=== PATIENT | female | born 1980 | race Caucasian/White ===

== ENCOUNTER → 2018-03-13 | Outpatient (CLI) | payer MEDICAID | LOC: COL.RAD 09:55 | DX: K21.9 Gastro-esophageal reflux disease without esophagitis (principal) ==

== ENCOUNTER 2018-04-05 09:24 | Inpatient (IN) | payer MEDICAID ==
[2018-04-05] VITALS (426 sets, daily range): BP systolic 115–124; BP diastolic 69–87; PULSE 84–88; TEMP 98.5–98.7; O2SAT 94–100
[~2018-04-05] VITALS: Ht 170.2 cm; Wt 100.7 kg
[2018-04-05] MEDS ORDERED: WELLBUTRIN XL150 MG PO (10:03)
[2018-04-05] MEDS ORDERED: CELEXA40 MG PO (10:04)
[2018-04-05] MEDS ORDERED: MOBIC15 MG PO (10:04)
[2018-04-05] MEDS ORDERED: XANAX .25M0.25 MG/TA PO (10:05)
[2018-04-05] MEDS ORDERED: PROTONIX 40MG T40 MG PO (10:06)
[2018-04-05] MEDS ORDERED: LIORESAL 1010 MG/TAB PO (10:06)
[2018-04-05] MEDS ORDERED: DESOGEN PO (10:07)
[2018-04-05 10:46] LABS: BASO # 0.1 (0.0-0.2); BASO % 0.7 % (0.0-2.0); EOS # 0.1 (0.0-0.7); EOS % 1.3 % (0-4.0); GRAN # 6.2 (1.4-6.5); GRAN % 72.7 % (42.2-75.2); HEMATOCRIT 38.4 % (37.0-47.0); HEMOGLOBIN 13.2 g/dl (12.5-16.0); LYMPH # 1.5 (1.2-3.4); LYMPH % 17.4 % (20.0-51.0); MEAN CELL VOLUME 87 fl (80.0-100.0); MEAN CORPUSCULAR HEMOGLOBIN 30 pg (27.0-31.0); MEAN CORPUSCULAR HGB CONC 34 g/dl (33.0-37.0); MEAN PLATELET VOLUME 10.1 fl (7.4-10.4); MONO # 0.6 (0.1-0.6); MONO % 7.4 % (1.7-9.3); PLATELET COUNT 315 K/mm3 (130-400); RED BLOOD COUNT 4.42 M/mm3 (4.10-5.30); REDCELL DISTRIBUTION WIDTH-CV 11.4 % (11.5-14.5)
[2018-04-05 10:58] LABS: COLLECTION METHOD CLEAN CATCH
[2018-04-05 11:02] LABS: ALANINE AMINOTRANSFERASE 16 U/L (9-52); ALBUMIN 3.6 gm/dL (3.5-5.0); ALKALINE PHOSPHATASE 119 U/L (50-136); ANION GAP 9 mmol/L (7-16); AST,SGOT 18 U/L (15-37); BILIRUBIN,TOTAL 0.2 mg/dL (0.0-1.0); BLOOD UREA NITROGEN 8 mg/dL (7-17); CARBON DIOXIDE 22 mmol/L (22-30); CHLORIDE 105 mmol/L (98-107); CREATINE KINASE 29 U/L (30-135); CREATININE, serum 0.73 mg/dL (0.52-1.25); GLUCOSE 98 mg/dL (74-106); MAGNESIUM 1.9 mg/dL (1.6-2.3); PHOSPHOROUS 3.6 mg/dL (2.5-4.5); POTASSIUM 3.8 mmol/L (3.4-5.0); SODIUM 137 mmol/L (137-145); TOTAL PROTEIN 7.1 gm/dL (6.4-8.2)
[2018-04-05 11:03] LABS: MUCOUS Present /lpf; PH 6 (5-8); SQUAMOUS EPITHELIAL 0-2 /hpf; URINE APPEARANCE Clear; URINE BACTERIA None Seen /hpf; URINE BILIRUBIN Negative (NEGATIVE); URINE BLOOD Negative (NEGATIVE); URINE COLOR Yellow; URINE GLUCOSE Negative (NEGATIVE); URINE KETONE Negative (NEGATIVE); URINE LEUKOCYTE ESTERASE Negative (NEGATIVE); URINE NITRATE Negative (NEGATIVE); URINE PROTEIN(semi-quant) Negative (NEGATIVE); URINE RBC 0-2 /hpf; URINE UROBILINOGEN Negative (NEGATIVE)
[2018-04-05 11:16] LABS: TROPONIN-I < 0.012 ng/mL (0.000-0.034)
[2018-04-05 11:19] LABS: THYROXINE (T4)-TOTAL 7.2 ug/dL (5.5-11.0)
[2018-04-05 11:32] LABS: THYROID STIMULATING HORMONE 0.465 uIU/mL (0.465-4.680)
[2018-04-05 12:51] LABS: INR 1.1 (0.8-3.0); PROTHROMBIN TIME 12.1 SECONDS (9.7-12.8)
[2018-04-05 12:54] LABS: PARTIAL THROMBOPLASTIN TIME 32.4 SECONDS (26.0-37.0)
[2018-04-06] VITALS (175 sets, daily range): BP systolic 104–123; BP diastolic 60–82; PULSE 76–85; TEMP 97.9–98.5; O2SAT 94–100
[2018-04-06 05:32] LABS: BASO % 0.6 % (0.0-2.0); EOS # 0.1 (0.0-0.7); EOS % 1.5 % (0-4.0); GRAN # 3.7 (1.4-6.5); GRAN % 56.3 % (42.2-75.2); HEMOGLOBIN 11.9 g/dl (12.5-16.0); LYMPH # 2.3 (1.2-3.4); LYMPH % 34.9 % (20.0-51.0); MEAN CELL VOLUME 87 fl (80.0-100.0); MEAN CORPUSCULAR HEMOGLOBIN 30 pg (27.0-31.0); MEAN CORPUSCULAR HGB CONC 34 g/dl (33.0-37.0); MEAN PLATELET VOLUME 9.7 fl (7.4-10.4); MONO # 0.4 (0.1-0.6); MONO % 6.4 % (1.7-9.3); PLATELET COUNT 228 K/mm3 (130-400); RED BLOOD COUNT 4.02 M/mm3 (4.10-5.30); REDCELL DISTRIBUTION WIDTH-CV 11.4 % (11.5-14.5)
[2018-04-06 05:33] LABS: HEMATOCRIT 34.8 % (37.0-47.0)
[2018-04-06 05:41] LABS: CALCIUM 8.2 mg/dL (8.4-10.2); CREATININE, serum 0.62 mg/dL (0.52-1.25); POTASSIUM 3.6 mmol/L (3.4-5.0)
[2018-04-07 05:36] VITALS: BP 106/62; PULSE 78; TEMP 98.3
[2018-04-07 06:43] LABS: BASO # 0.1 (0.0-0.2); BASO % 0.8 % (0.0-2.0); EOS # 0.1 (0.0-0.7); EOS % 1.7 % (0-4.0); GRAN # 3.7 (1.4-6.5); GRAN % 58.4 % (42.2-75.2); HEMOGLOBIN 12.6 g/dl (12.5-16.0); LYMPH % 31.2 % (20.0-51.0); MEAN CELL VOLUME 88 fl (80.0-100.0); MEAN CORPUSCULAR HEMOGLOBIN 29 pg (27.0-31.0); MEAN CORPUSCULAR HGB CONC 33 g/dl (33.0-37.0); MEAN PLATELET VOLUME 9.8 fl (7.4-10.4); MONO # 0.5 (0.1-0.6); MONO % 7.6 % (1.7-9.3); PLATELET COUNT 271 K/mm3 (130-400); RED BLOOD COUNT 4.31 M/mm3 (4.10-5.30); REDCELL DISTRIBUTION WIDTH-CV 11.6 % (11.5-14.5)
[2018-04-07 06:57] VITALS: BP 116/71; PULSE 71; TEMP 97.4
[2018-04-07] MEDS ORDERED: ELIQUIS 5MG PO (10:46)
== END 2018-04-07 14:01 | disposition home or self-care (01) | DRG 176 ==
LOC: COL.ER 09:24 → ICU 13:17 → MEDICAL 04-06 13:42
PROVIDERS: Emergency Medicine; Hospitalist
DX: I26.99 Other pulmonary embolism without acute cor pulmonale (principal); Z87.891 Personal history of nicotine dependence; F41.8 Other specified anxiety disorders
CPT/HCPCS: 99223-AI; 99233-AI; 99239; J1650; J1940; J2060; J2405; J7030; Q9967

== ENCOUNTER 2018-04-12 16:45 | Emergency (ER) | payer MEDICAID ==
[~2018-04-12] VITALS: Ht 167.6 cm; Wt 100.0 kg
[~2018-04-12 16:45] MED LIST: CELEXA40 MG PO; DESOGEN PO; ELIQUIS 5MG PO; LIORESAL 1010 MG/TAB PO; MOBIC15 MG PO; PROTONIX 40MG T40 MG PO; WELLBUTRIN XL150 MG PO; XANAX .25M0.25 MG/TA PO
[2018-04-12 16:50] VITALS: TEMP 98.1
[2018-04-12] MEDS ORDERED: FLEXERIL 1010 MG/TAB PO (18:18)
[2018-04-12] MEDS ORDERED: XANAX 0.5MG0.5 MG PO (18:19)
[2018-04-12] MEDS ORDERED: NORCO 325 MG-51 TAB PO (18:38)
[2018-04-12 19:04] VITALS: BP 121/78; PULSE 71
== END 2018-04-12 19:04 | disposition home or self-care (01) ==
LOC: COL.ER 16:45
DX: M94.0 Chondrocostal junction syndrome [Tietze] (principal)

== ENCOUNTER 2018-05-02 17:21 | Emergency (ER) | payer MEDICAID ==
[~2018-05-02] VITALS: Ht 167.6 cm; Wt 100.9 kg
[~2018-05-02 17:21] MED LIST changes: +FLEXERIL 1010 MG/TAB PO; +NORCO 325 MG-51 TAB PO; +XANAX 0.5MG0.5 MG PO
[2018-05-02 17:30] VITALS: TEMP 98
[2018-05-02 18:08] LABS: BASO # 0.1 (0.0-0.2); BASO % 0.6 % (0.0-2.0); EOS # 0.1 (0.0-0.7); EOS % 0.6 % (0-4.0); HEMATOCRIT 38.7 % (37.0-47.0); LYMPH # 2.5 (1.2-3.4); LYMPH % 26.8 % (20.0-51.0); MEAN CELL VOLUME 86 fl (80.0-100.0); MEAN CORPUSCULAR HEMOGLOBIN 29 pg (27.0-31.0); MEAN CORPUSCULAR HGB CONC 34 g/dl (33.0-37.0); MEAN PLATELET VOLUME 9.8 fl (7.4-10.4); MONO # 0.7 (0.1-0.6); MONO % 7.7 % (1.7-9.3); PLATELET COUNT 318 K/mm3 (130-400); RED BLOOD COUNT 4.48 M/mm3 (4.10-5.30); REDCELL DISTRIBUTION WIDTH-CV 12.1 % (11.5-14.5)
[2018-05-02] MEDS ORDERED: PRILOSEC 20MG20 MG PO (18:13)
[2018-05-02 18:22] LABS: ALBUMIN 3.8 gm/dL (3.5-5.0); BILIRUBIN,TOTAL 0.4 mg/dL (0.0-1.0); CALCIUM 9.1 mg/dL (8.4-10.2); CREATININE, serum 0.7 mg/dL (0.52-1.25); POTASSIUM 4.1 mmol/L (3.4-5.0); TOTAL PROTEIN 7.5 gm/dL (6.4-8.2)
[2018-05-02] MEDS ORDERED: NORCO 325 MG-51 TAB PO (19:30)
[2018-05-02 19:50] VITALS: BP 119/72; PULSE 93
== END 2018-05-02 19:45 | disposition home or self-care (01) ==
LOC: COL.ER 17:21
PROVIDERS: Emergency Medicine
DX: R07.89 Other chest pain (principal); Z86.711 Personal history of pulmonary embolism; Z79.01 Long term (current) use of anticoagulants; Z90.89 Acquired absence of other organs; Z87.891 Personal history of nicotine dependence
CPT/HCPCS: J1885; J7030

== ENCOUNTER 2018-05-14 09:26 | Emergency (ER) | payer MEDICAID ==
[~2018-05-14] VITALS: Ht 165.1 cm; Wt 104.5 kg
[~2018-05-14 09:26] MED LIST changes: +PRILOSEC 20MG20 MG PO
[2018-05-14 09:34] VITALS: TEMP 97
[2018-05-14 10:30] LABS: BASO # 0.1 (0.0-0.2); EOS # 0.1 (0.0-0.7); GRAN # 3.6 (1.4-6.5); GRAN % 62.2 % (42.2-75.2); HEMATOCRIT 39.2 % (37.0-47.0); HEMOGLOBIN 13.1 g/dl (12.5-16.0); LYMPH # 1.6 (1.2-3.4); LYMPH % 27.2 % (20.0-51.0); MEAN CELL VOLUME 87 fl (80.0-100.0); MEAN CORPUSCULAR HEMOGLOBIN 29 pg (27.0-31.0); MEAN CORPUSCULAR HGB CONC 33 g/dl (33.0-37.0); MEAN PLATELET VOLUME 9.9 fl (7.4-10.4); MONO # 0.5 (0.1-0.6); MONO % 8.4 % (1.7-9.3); PLATELET COUNT 275 K/mm3 (130-400); RED BLOOD COUNT 4.53 M/mm3 (4.10-5.30); REDCELL DISTRIBUTION WIDTH-CV 12.8 % (11.5-14.5)
[2018-05-14 10:48] LABS: ALANINE AMINOTRANSFERASE 20 U/L (9-52); ALBUMIN 3.8 gm/dL (3.5-5.0); ALKALINE PHOSPHATASE 94 U/L (50-136); ANION GAP 11 mmol/L (7-16); AST,SGOT 23 U/L (15-37); BILIRUBIN,TOTAL 0.3 mg/dL (0.0-1.0); BLOOD UREA NITROGEN 11 mg/dL (7-17); CALCIUM 8.8 mg/dL (8.4-10.2); CARBON DIOXIDE 24 mmol/L (22-30); CHLORIDE 101 mmol/L (98-107); CREATININE, serum 0.79 mg/dL (0.52-1.25); GLUCOSE 91 mg/dL (74-106); POTASSIUM 4.1 mmol/L (3.4-5.0); SODIUM 136 mmol/L (137-145); TOTAL PROTEIN 7.5 gm/dL (6.4-8.2)
[2018-05-14 10:57] LABS: TROPONIN-I < 0.012 ng/mL (0.000-0.034)
[2018-05-14] MEDS ORDERED: NORCO 325 MG-51 TAB PO (12:06)
[2018-05-14] MEDS ORDERED: ELIQUIS 5MG PO (12:06)
[2018-05-14] MEDS ORDERED: FLEXERIL 1010 MG/TAB PO (12:06)
[2018-05-14 12:16] VITALS: BP 114/79; PULSE 93
== END 2018-05-14 12:17 | disposition home or self-care (01) ==
LOC: COL.ER 09:26
PROVIDERS: Emergency Medicine
DX: R07.81 Pleurodynia (principal); F41.9 Anxiety disorder, unspecified; Z86.711 Personal history of pulmonary embolism; Z98.890 Other specified postprocedural states; Z90.89 Acquired absence of other organs; Z87.891 Personal history of nicotine dependence; Z79.01 Long term (current) use of anticoagulants
CPT/HCPCS: Q9967

== ENCOUNTER 2018-07-14 17:24 | Emergency (ER) | payer MEDICAID ==
[~2018-07-14] VITALS: Ht 167.6 cm; Wt 104.5 kg
[2018-07-14 18:09] LABS: BASO # 0.1 (0.0-0.2); BASO % 1.2 % (0.0-2.0); EOS # 0.1 (0.0-0.7); EOS % 1.1 % (0-4.0); GRAN # 2.8 (1.4-6.5); GRAN % 48.4 % (42.2-75.2); HEMATOCRIT 39.3 % (37.0-47.0); HEMOGLOBIN 13.6 g/dl (12.5-16.0); LYMPH # 2.4 (1.2-3.4); LYMPH % 41.2 % (20.0-51.0); MEAN CELL VOLUME 85 fl (80.0-100.0); MEAN CORPUSCULAR HEMOGLOBIN 29 pg (27.0-31.0); MEAN CORPUSCULAR HGB CONC 35 g/dl (33.0-37.0); MEAN PLATELET VOLUME 9.5 fl (7.4-10.4); MONO # 0.4 (0.1-0.6); MONO % 7.7 % (1.7-9.3); PLATELET COUNT 301 K/mm3 (130-400); RED BLOOD COUNT 4.63 M/mm3 (4.10-5.30); REDCELL DISTRIBUTION WIDTH-CV 12.8 % (11.5-14.5)
[2018-07-14 18:18] LABS: ALANINE AMINOTRANSFERASE 103 U/L (9-52); ALBUMIN 3.9 gm/dL (3.5-5.0); ALKALINE PHOSPHATASE 97 U/L (50-136); ANION GAP 7 mmol/L (7-16); AST,SGOT 158 U/L (15-37); BILIRUBIN,TOTAL 0.3 mg/dL (0.0-1.0); BLOOD UREA NITROGEN 8 mg/dL (7-17); CALCIUM 8.7 mg/dL (8.4-10.2); CARBON DIOXIDE 23 mmol/L (22-30); CHLORIDE 108 mmol/L (98-107); CREATININE, serum 0.66 mg/dL (0.52-1.25); GLUCOSE 92 mg/dL (74-106); POTASSIUM 3.9 mmol/L (3.4-5.0); SODIUM 137 mmol/L (137-145); TOTAL PROTEIN 7.4 gm/dL (6.4-8.2)
[2018-07-14 18:33] LABS: TROPONIN-I < 0.012 ng/mL (0.000-0.034)
[2018-07-14] MEDS ORDERED: PROAIR HFA0.09 MG/AC IH ×3 (20:59→21:17)
[2018-07-14 21:14] VITALS: BP 121/74; PULSE 70
== END 2018-07-14 21:14 | disposition home or self-care (01) ==
LOC: COL.ER 17:24
PROVIDERS: Emergency Medicine
DX: R09.1 Pleurisy (principal); Z86.711 Personal history of pulmonary embolism
CPT/HCPCS: J1170; J1885; J2405; J7030; Q9967

== ENCOUNTER 2018-09-13 16:49 | Emergency (ER) | payer MEDICAID ==
[~2018-09-13] VITALS: Ht 167.6 cm; Wt 104.5 kg
[~2018-09-13 16:49] MED LIST changes: +PROAIR HFA0.09 MG/AC IH
[2018-09-13 16:56] VITALS: TEMP 98.2
[2018-09-13] MEDS ORDERED: BUSPAR10 MG PO (17:12)
[2018-09-13] MEDS ORDERED: SENOKOT8.6 MG PO (17:13)
[2018-09-13] MEDS ORDERED: NEURONTIN300 MG/CAP PO (17:13)
[2018-09-13] MEDS ORDERED: XANAX 0.5MG0.5 MG PO (17:13)
[2018-09-13] MEDS ORDERED: NORFLEX 10100 MG/TAB PO (17:14)
[2018-09-13] MEDS ORDERED: DESYREL DIVIDO150 M1 PO (17:14)
[2018-09-13 17:24] LABS: BASO # 0.1 (0.0-0.2); BASO % 1.1 % (0.0-2.0); EOS # 0.1 (0.0-0.7); EOS % 0.9 % (0-4.0); GRAN # 3.6 (1.4-6.5); GRAN % 54.4 % (42.2-75.2); HEMATOCRIT 40.8 % (37.0-47.0); HEMOGLOBIN 13.8 g/dl (12.5-16.0); LYMPH # 2.3 (1.2-3.4); LYMPH % 34.7 % (20.0-51.0); MEAN CELL VOLUME 88 fl (80.0-100.0); MEAN CORPUSCULAR HEMOGLOBIN 30 pg (27.0-31.0); MEAN CORPUSCULAR HGB CONC 34 g/dl (33.0-37.0); MEAN PLATELET VOLUME 9.7 fl (7.4-10.4); MONO # 0.6 (0.1-0.6); MONO % 8.7 % (1.7-9.3); PLATELET COUNT 291 K/mm3 (130-400); RED BLOOD COUNT 4.66 M/mm3 (4.10-5.30); REDCELL DISTRIBUTION WIDTH-CV 12.6 % (11.5-14.5)
[2018-09-13 17:30] LABS: ALANINE AMINOTRANSFERASE 14 U/L (9-52); ALKALINE PHOSPHATASE 82 U/L (50-136); ANION GAP 7 mmol/L (7-16); AST,SGOT 21 U/L (15-37); BILIRUBIN,TOTAL 0.2 mg/dL (0.0-1.0); BLOOD UREA NITROGEN 5 mg/dL (7-17); C-REACTIVE PROTEIN < 0.5 mg/dL (0.0-0.9); CARBON DIOXIDE 25 mmol/L (22-30); CHLORIDE 106 mmol/L (98-107); CREATINE KINASE 50 U/L (30-135); CREATININE, serum 0.72 mg/dL (0.52-1.25); GLUCOSE 91 mg/dL (74-106); POTASSIUM 3.9 mmol/L (3.4-5.0); SODIUM 138 mmol/L (137-145); TOTAL PROTEIN 7.5 gm/dL (6.4-8.2)
[2018-09-13 17:40] LABS: INR 1.1 (0.8-3.0); PROTHROMBIN TIME 12.2 SECONDS (9.7-12.8)
[2018-09-13 17:43] LABS: PARTIAL THROMBOPLASTIN TIME 31.7 SECONDS (26.0-37.0)
[2018-09-13 18:14] LABS: TROPONIN-I < 0.012 ng/mL (0.000-0.034)
[2018-09-13] MEDS ORDERED: NORCO 325 MG-51 TAB PO (18:24)
[2018-09-13] MEDS ORDERED: PREDNISONE20 MG PO (18:24)
[2018-09-13 18:54] VITALS: BP 125/83; PULSE 100
== END 2018-09-13 18:55 | disposition home or self-care (01) ==
LOC: COL.ER 16:49
PROVIDERS: Emergency Medicine
DX: R09.1 Pleurisy (principal); R07.89 Other chest pain; Z90.89 Acquired absence of other organs; Z98.890 Other specified postprocedural states; Z86.711 Personal history of pulmonary embolism; Z86.718 Personal history of other venous thrombosis and embolism
CPT/HCPCS: J2405; J7030; J7512

== ENCOUNTER 2018-10-04 18:18 | Emergency (ER) | payer MEDICAID ==
[~2018-10-04] VITALS: Ht 167.6 cm; Wt 118.2 kg
[~2018-10-04 18:18] MED LIST changes: +BUSPAR10 MG PO; +DESYREL DIVIDO150 M1 PO; +NEURONTIN300 MG/CAP PO; +NORFLEX 10100 MG/TAB PO; +PREDNISONE20 MG PO; +SENOKOT8.6 MG PO
[2018-10-04] MEDS ORDERED: NORFLEX 10100 MG/TAB PO (18:35)
[2018-10-04] MEDS ORDERED: EFFEXOR100 MG PO (18:37)
[2018-10-04] MEDS ORDERED: PROMETHAZINE12.5 M5 PO (18:38)
[2018-10-04 19:06] LABS: BASO # 0.1 (0.0-0.2); BASO % 0.6 % (0.0-2.0); EOS # 0.1 (0.0-0.7); EOS % 0.8 % (0-4.0); GRAN % 61.9 % (42.2-75.2); HEMATOCRIT 39.3 % (37.0-47.0); HEMOGLOBIN 13.1 g/dl (12.5-16.0); LYMPH # 2.8 (1.2-3.4); LYMPH % 29.2 % (20.0-51.0); MEAN CELL VOLUME 88 fl (80.0-100.0); MEAN CORPUSCULAR HEMOGLOBIN 29 pg (27.0-31.0); MEAN CORPUSCULAR HGB CONC 33 g/dl (33.0-37.0); MEAN PLATELET VOLUME 9.7 fl (7.4-10.4); MONO # 0.7 (0.1-0.6); MONO % 7.2 % (1.7-9.3); PLATELET COUNT 224 K/mm3 (130-400); RED BLOOD COUNT 4.46 M/mm3 (4.10-5.30); REDCELL DISTRIBUTION WIDTH-CV 12.5 % (11.5-14.5)
[2018-10-04 19:36] LABS: ALANINE AMINOTRANSFERASE 22 U/L (9-52); ALBUMIN 3.6 gm/dL (3.5-5.0); ALKALINE PHOSPHATASE 90 U/L (50-136); ANION GAP 6 mmol/L (7-16); AST,SGOT 40 U/L (15-37); BILIRUBIN,TOTAL 0.3 mg/dL (0.0-1.0); BLOOD UREA NITROGEN 7 mg/dL (7-17); CALCIUM 8.9 mg/dL (8.4-10.2); CARBON DIOXIDE 24 mmol/L (22-30); CHLORIDE 103 mmol/L (98-107); CREATININE, serum 0.72 mg/dL (0.52-1.25); GLUCOSE 88 mg/dL (74-106); LIPASE 53 U/L (23-300); POTASSIUM 4.1 mmol/L (3.4-5.0); SODIUM 133 mmol/L (137-145)
[2018-10-04 19:42] LABS: TROPONIN-I < 0.012 ng/mL (0.000-0.034)
[2018-10-04] MEDS ORDERED: ZITHROMAX 250M250 MG PO ×2 (19:53→19:58)
[2018-10-04 19:54] VITALS: BP 108/72; PULSE 65; TEMP 98.2
[2018-10-04 20:31] LABS: C-REACTIVE PROTEIN 0.6 mg/dL (0.0-0.9)
== END 2018-10-04 20:34 | disposition home or self-care (01) ==
LOC: COL.ER 18:18
PROVIDERS: Emergency Medicine
DX: J20.9 Acute bronchitis, unspecified (principal); Z87.891 Personal history of nicotine dependence; Z86.711 Personal history of pulmonary embolism; Z86.718 Personal history of other venous thrombosis and embolism

== ENCOUNTER → 2018-10-17 | Outpatient (CLI) | payer MEDICAID ==
[~2018-10-17] MED LIST changes: +EFFEXOR100 MG PO; +PROMETHAZINE12.5 M5 PO; +ZITHROMAX 250M250 MG PO
== END ==
LOC: COL.VAS 09:45 → COL.RAD 11:22
DX: I26.99 Other pulmonary embolism without acute cor pulmonale (principal)
CPT/HCPCS: Q9967

== ENCOUNTER 2018-11-02 13:49 | Emergency (ER) | payer MEDICAID ==
[~2018-11-02] VITALS: Ht 165.1 cm; Wt 109.1 kg
[2018-11-02] MEDS ORDERED: INDERAL40 MG PO (14:25)
[2018-11-02] MEDS ORDERED: EFFEXOR-XR150 MG PO (14:29)
[2018-11-02 15:20] LABS: BASO # 0.1 (0.0-0.2); BASO % 0.8 % (0.0-2.0); EOS # 0.1 (0.0-0.7); EOS % 1.1 % (0-4.0); GRAN # 4.1 (1.4-6.5); GRAN % 53.5 % (42.2-75.2); HEMATOCRIT 38.4 % (37.0-47.0); HEMOGLOBIN 12.9 g/dl (12.5-16.0); LYMPH # 2.7 (1.2-3.4); LYMPH % 35.1 % (20.0-51.0); MEAN CELL VOLUME 88 fl (80.0-100.0); MEAN CORPUSCULAR HEMOGLOBIN 29 pg (27.0-31.0); MEAN CORPUSCULAR HGB CONC 34 g/dl (33.0-37.0); MEAN PLATELET VOLUME 9.7 fl (7.4-10.4); MONO # 0.7 (0.1-0.6); PLATELET COUNT 236 K/mm3 (130-400); RED BLOOD COUNT 4.39 M/mm3 (4.10-5.30); REDCELL DISTRIBUTION WIDTH-CV 12.7 % (11.5-14.5)
[2018-11-02 15:30] LABS: ALANINE AMINOTRANSFERASE 19 U/L (9-52); ALBUMIN 3.7 gm/dL (3.5-5.0); ALKALINE PHOSPHATASE 88 U/L (50-136); ANION GAP 6 mmol/L (7-16); AST,SGOT 22 U/L (15-37); BILIRUBIN,TOTAL 0.3 mg/dL (0.0-1.0); BLOOD UREA NITROGEN 11 mg/dL (7-17); CALCIUM 8.8 mg/dL (8.4-10.2); CARBON DIOXIDE 23 mmol/L (22-30); CHLORIDE 105 mmol/L (98-107); CREATININE, serum 0.85 mg/dL (0.52-1.25); GLUCOSE 88 mg/dL (74-106); POTASSIUM 4.2 mmol/L (3.4-5.0); SODIUM 135 mmol/L (137-145); TOTAL PROTEIN 7.1 gm/dL (6.4-8.2)
[2018-11-02 15:45] LABS: TROPONIN-I < 0.012 ng/mL (0.000-0.035)
[2018-11-02] MEDS ORDERED: NORCO 325 MG-51 TAB PO (16:00)
[2018-11-02] MEDS ORDERED: CARAFATE 1GM1 G PO (16:00)
[2018-11-02 16:20] VITALS: BP 115/74; PULSE 68
== END 2018-11-02 16:20 | disposition home or self-care (01) ==
LOC: COL.ER 13:49
PROVIDERS: Emergency Medicine
DX: R07.89 Other chest pain (principal); K21.9 Gastro-esophageal reflux disease without esophagitis; G43.909 Migraine, unspecified, not intractable, without status migrainosus; Z86.718 Personal history of other venous thrombosis and embolism

== ENCOUNTER 2018-12-11 17:52 | Emergency (ER) | payer MEDICAID ==
[~2018-12-11] VITALS: Ht 167.6 cm; Wt 107.7 kg
[~2018-12-11 17:52] MED LIST changes: +CARAFATE 1GM1 G PO; +EFFEXOR-XR150 MG PO; +INDERAL40 MG PO
[2018-12-11 18:01] VITALS: TEMP 98
[2018-12-11 18:32] LABS: BASO # 0.1 (0.0-0.2); BASO % 1.1 % (0.0-2.0); EOS # 0.1 (0.0-0.7); EOS % 1.4 % (0-4.0); GRAN # 4.8 (1.4-6.5); GRAN % 56.4 % (42.2-75.2); HEMATOCRIT 41.7 % (37.0-47.0); HEMOGLOBIN 14.2 g/dl (12.5-16.0); LYMPH # 2.8 (1.2-3.4); MEAN CELL VOLUME 88 fl (80.0-100.0); MEAN CORPUSCULAR HEMOGLOBIN 30 pg (27.0-31.0); MEAN CORPUSCULAR HGB CONC 34 g/dl (33.0-37.0); MEAN PLATELET VOLUME 10.1 fl (7.4-10.4); MONO # 0.7 (0.1-0.6); MONO % 7.9 % (1.7-9.3); PLATELET COUNT 367 K/mm3 (130-400); RED BLOOD COUNT 4.73 M/mm3 (4.10-5.30); REDCELL DISTRIBUTION WIDTH-CV 12.9 % (11.5-14.5)
[2018-12-11 18:54] LABS: COLLECTION METHOD CLEAN CATCH
[2018-12-11 19:20] LABS: PH 5 (5-8); SQUAMOUS EPITHELIAL 0-2 /hpf; URINE APPEARANCE Clear; URINE BACTERIA Rare /hpf; URINE BILIRUBIN Negative (NEGATIVE); URINE BLOOD Negative (NEGATIVE); URINE COLOR Yellow; URINE GLUCOSE Negative (NEGATIVE); URINE KETONE Negative (NEGATIVE); URINE LEUKOCYTE ESTERASE Negative (NEGATIVE); URINE NITRATE Negative (NEGATIVE); URINE PROTEIN(semi-quant) Negative (NEGATIVE); URINE RBC 0-2 /hpf; URINE UROBILINOGEN Negative (NEGATIVE)
[2018-12-11 19:22] LABS: ALBUMIN 4.1 gm/dL (3.5-5.0); BILIRUBIN,TOTAL 0.3 mg/dL (0.0-1.0); CREATININE, serum 0.78 mg/dL (0.52-1.25); POTASSIUM 4.1 mmol/L (3.4-5.0); TOTAL PROTEIN 7.9 gm/dL (6.4-8.2)
[2018-12-11 20:59] VITALS: BP 112/75; PULSE 69
== END 2018-12-11 21:10 | disposition home or self-care (01) ==
LOC: COL.ER 17:52
PROVIDERS: Emergency Medicine; Physician Assistant
DX: R07.89 Other chest pain (principal); R79.1 Abnormal coagulation profile; M79.604 Pain in right leg; Z87.891 Personal history of nicotine dependence; Z90.89 Acquired absence of other organs; Z86.711 Personal history of pulmonary embolism
CPT/HCPCS: Q9967

== ENCOUNTER → 2018-12-15 | Outpatient (CLI) | payer MEDICAID | LOC: COL.VAS 10:54 | DX: M79.604 Pain in right leg (principal); R79.1 Abnormal coagulation profile ==

== ENCOUNTER 2018-12-24 11:48 | Emergency (ER) | payer MEDICAID ==
[~2018-12-24] VITALS: Ht 167.6 cm; Wt 112.3 kg
[2018-12-24 11:55] VITALS: TEMP 97.9
[2018-12-24 13:20] LABS: BASO # 0.1 (0.0-0.2); BASO % 0.8 % (0.0-2.0); EOS # 0.1 (0.0-0.7); EOS % 1.4 % (0-4.0); GRAN # 4.5 (1.4-6.5); GRAN % 60.5 % (42.2-75.2); HEMATOCRIT 40.5 % (37.0-47.0); HEMOGLOBIN 13.4 g/dl (12.5-16.0); LYMPH # 2.2 (1.2-3.4); MEAN CELL VOLUME 91 fl (80.0-100.0); MEAN CORPUSCULAR HEMOGLOBIN 30 pg (27.0-31.0); MEAN CORPUSCULAR HGB CONC 33 g/dl (33.0-37.0); MONO # 0.5 (0.1-0.6); MONO % 6.9 % (1.7-9.3); PLATELET COUNT 239 K/mm3 (130-400); RED BLOOD COUNT 4.47 M/mm3 (4.10-5.30)
[2018-12-24 13:26] LABS: BILIRUBIN,TOTAL 0.4 mg/dL (0.0-1.0); CALCIUM 9.1 mg/dL (8.4-10.2); CREATININE, serum 0.94 (0.52-1.25); POTASSIUM 3.9 mmol/L (3.4-5.0); TOTAL PROTEIN 7.8 gm/dL (6.4-8.2)
[2018-12-24 14:24] LABS: TROPONIN-I < 0.012 ng/mL (0.000-0.035)
[2018-12-24 14:28] LABS: HCG,QUANTITATIVE < 2 mIU/mL (0-5)
[2018-12-24 16:18] LABS: COLLECTION METHOD CLEAN CATCH
[2018-12-24 16:26] LABS: MUCOUS Present /lpf; PH 7 (5-8); URINE APPEARANCE Hazy; URINE BACTERIA None Seen /hpf; URINE BILIRUBIN Negative (NEGATIVE); URINE BLOOD Negative (NEGATIVE); URINE COLOR Yellow; URINE GLUCOSE Negative (NEGATIVE); URINE KETONE Negative (NEGATIVE); URINE LEUKOCYTE ESTERASE Trace (NEGATIVE); URINE NITRATE Negative (NEGATIVE); URINE PROTEIN(semi-quant) Negative (NEGATIVE); URINE RBC 0-2 /hpf; URINE UROBILINOGEN Negative (NEGATIVE)
[2018-12-24] MEDS ORDERED: ZOFRAN 4MG T4 MG/TAB PO (17:34)
[2018-12-24] MEDS ORDERED: ANTIVERT 25MG25 MG PO (17:34)
[2018-12-24] MEDS ORDERED: NORCO 325 MG-51 TAB PO (18:13)
[2018-12-24 18:18] VITALS: BP 100/74; PULSE 72
== END 2018-12-24 18:19 | disposition home or self-care (01) ==
LOC: COL.ER 11:48
PROVIDERS: Emergency Medicine
DX: S09.90XA Unspecified injury of head, initial encounter (principal); R55 Syncope and collapse; W10.8XXA Fall (on) (from) other stairs and steps, initial encounter
CPT/HCPCS: J2405; J7030

== ENCOUNTER 2018-12-28 15:02 | Emergency (ER) | payer MEDICAID ==
[~2018-12-28] VITALS: Ht 167.6 cm; Wt 115.9 kg
[~2018-12-28 15:02] MED LIST changes: +ANTIVERT 25MG25 MG PO; +ZOFRAN 4MG T4 MG/TAB PO
[2018-12-28 15:09] VITALS: TEMP 98.6
[2018-12-28 17:40] VITALS: BP 108/69; PULSE 76
== END 2018-12-28 17:45 | disposition home or self-care (01) ==
LOC: COL.ER 15:02
DX: R51 Headache (principal); T50.995A Adverse effect of other drugs, medicaments and biological substances, initial encounter; F41.9 Anxiety disorder, unspecified; Z88.1 Allergy status to other antibiotic agents; Z90.49 Acquired absence of other specified parts of digestive tract; Z87.891 Personal history of nicotine dependence; Z86.711 Personal history of pulmonary embolism
CPT/HCPCS: J1200; J1885; J2765; J3010; J7030

== ENCOUNTER 2019-01-19 18:08 | Emergency (ER) | payer MEDICAID ==
[~2019-01-19] VITALS: Ht 167.6 cm; Wt 118.2 kg
[2019-01-19 18:11] VITALS: TEMP 98.3
[2019-01-19 18:35] LABS: COLLECTION METHOD CLEAN CATCH
[2019-01-19 18:42] LABS: PH 7 (5-8); SQUAMOUS EPITHELIAL 0-2 /hpf; URINE APPEARANCE Clear; URINE BACTERIA Rare /hpf; URINE BILIRUBIN Negative (NEGATIVE); URINE BLOOD Negative (NEGATIVE); URINE COLOR Yellow; URINE GLUCOSE Negative (NEGATIVE); URINE KETONE Negative (NEGATIVE); URINE LEUKOCYTE ESTERASE Negative (NEGATIVE); URINE NITRATE Negative (NEGATIVE); URINE PROTEIN(semi-quant) Negative (NEGATIVE); URINE RBC 0-2 /hpf; URINE UROBILINOGEN Negative (NEGATIVE)
[2019-01-19 19:05] LABS: BASO # 0.1 (0.0-0.2); BASO % 1.1 % (0.0-2.0); EOS # 0.1 (0.0-0.7); EOS % 1.8 % (0-4.0); GRAN # 3.7 (1.4-6.5); GRAN % 52.8 % (42.2-75.2); HEMOGLOBIN 12.6 g/dl (12.5-16.0); LYMPH # 2.5 (1.2-3.4); LYMPH % 35.2 % (20.0-51.0); MEAN CELL VOLUME 88 fl (80.0-100.0); MEAN CORPUSCULAR HEMOGLOBIN 30 pg (27.0-31.0); MEAN CORPUSCULAR HGB CONC 34 g/dl (33.0-37.0); MEAN PLATELET VOLUME 9.9 fl (7.4-10.4); MONO # 0.6 (0.1-0.6); MONO % 8.8 % (1.7-9.3); PLATELET COUNT 245 K/mm3 (130-400); RED BLOOD COUNT 4.15 M/mm3 (4.10-5.30); REDCELL DISTRIBUTION WIDTH-CV 12.1 % (11.5-14.5)
[2019-01-19 19:06] LABS: HEMATOCRIT 36.7 % (37.0-47.0)
[2019-01-19 19:16] LABS: ALANINE AMINOTRANSFERASE 29 U/L (9-52); ALBUMIN 3.7 gm/dL (3.5-5.0); ALKALINE PHOSPHATASE 88 U/L (50-136); ANION GAP 6 mmol/L (7-16); AST,SGOT 42 U/L (15-37); BILIRUBIN,TOTAL 0.3 mg/dL (0.0-1.0); BLOOD UREA NITROGEN 8 mg/dL (7-17); CARBON DIOXIDE 26 mmol/L (22-30); CHLORIDE 105 mmol/L (98-107); CREATININE, serum 0.88 (0.52-1.25); GLUCOSE 87 mg/dL (74-106); LIPASE 69 U/L (23-300); POTASSIUM 3.5 mmol/L (3.4-5.0); SODIUM 137 mmol/L (137-145); TOTAL PROTEIN 7.2 gm/dL (6.4-8.2)
[2019-01-19 19:27] LABS: TROPONIN-I < 0.012 ng/mL (0.000-0.035)
[2019-01-19 21:00] VITALS: BP 117/89; PULSE 63
== END 2019-01-19 21:00 | disposition home or self-care (01) ==
LOC: COL.ER 18:08
PROVIDERS: Emergency Medicine
DX: R07.89 Other chest pain (principal); R60.9 Edema, unspecified; Z86.718 Personal history of other venous thrombosis and embolism

== ENCOUNTER → 2019-01-21 | Outpatient (CLI) | payer MEDICAID | LOC: COL.VAS 09:00 | DX: I27.20 Pulmonary hypertension, unspecified (principal); I34.0 Nonrheumatic mitral (valve) insufficiency ==

== ENCOUNTER 2019-02-22 12:13 | Emergency (ER) | payer MEDICAID ==
[~2019-02-22] VITALS: Ht 165.1 cm; Wt 113.6 kg
[2019-02-22 12:46] VITALS: TEMP 97.1
[2019-02-22] MEDS ORDERED: FIORICET 325 MG1 TA1 PO (13:03)
[2019-02-22 15:01] VITALS: BP 110/79; PULSE 78
== END 2019-02-22 15:03 | disposition home or self-care (01) ==
LOC: COL.ER 12:13
DX: G43.909 Migraine, unspecified, not intractable, without status migrainosus (principal); R11.0 Nausea; E03.9 Hypothyroidism, unspecified; F32.9 Major depressive disorder, single episode, unspecified; F41.9 Anxiety disorder, unspecified; Z90.49 Acquired absence of other specified parts of digestive tract; Z87.891 Personal history of nicotine dependence
CPT/HCPCS: J0780; J1170

== ENCOUNTER 2019-02-27 16:53 | Emergency (ER) | payer MEDICAID ==
[~2019-02-27] VITALS: Ht 165.1 cm; Wt 113.6 kg
[~2019-02-27 16:53] MED LIST changes: +FIORICET 325 MG1 TA1 PO
[2019-02-27 17:05] VITALS: BP 129/83; TEMP 96.4
[2019-02-27] MEDS ORDERED: EFFEXOR-XR150 MG PO (18:13)
[2019-02-27] MEDS ORDERED: HCTZ 25MG TAB25 MG PO (18:14)
[2019-02-27] MEDS ORDERED: MOBIC15 MG PO (18:14)
[2019-02-27] MEDS ORDERED: SYNTHROID 0.0.025 MG PO (18:15)
[2019-02-27 19:01] VITALS: PULSE 92
== END 2019-02-27 19:01 | disposition home or self-care (01) ==
LOC: COL.ER 16:53
DX: G43.909 Migraine, unspecified, not intractable, without status migrainosus (principal)
CPT/HCPCS: J0780; J1170; J1200

== ENCOUNTER 2019-03-03 15:57 | Emergency (ER) | payer MEDICAID ==
[~2019-03-03] VITALS: Ht 165.1 cm; Wt 113.6 kg
[~2019-03-03 15:57] MED LIST changes: +HCTZ 25MG TAB25 MG PO; +SYNTHROID 0.0.025 MG PO
[2019-03-03 16:03] VITALS: BP 125/89; TEMP 97.5
[2019-03-03] MEDS ORDERED: AIMOVIG AU70 MG/1 ML SQ (16:08)
[2019-03-03 18:50] VITALS: PULSE 80
== END 2019-03-03 18:50 | disposition home or self-care (01) ==
LOC: COL.ER 15:57
DX: G25.71 Drug induced akathisia (principal); T43.4X5A Adverse effect of butyrophenone and thiothixene neuroleptics, initial encounter; R51 Headache; Z86.69 Personal history of other diseases of the nervous system and sense organs
CPT/HCPCS: J1100; J1200; J1630; J1885; J2060; J7030

== ENCOUNTER 2019-03-05 15:09 | Emergency (ER) | payer MEDICAID ==
[~2019-03-05] VITALS: Ht 167.6 cm; Wt 113.6 kg
[~2019-03-05 15:09] MED LIST changes: +AIMOVIG AU70 MG/1 ML SQ
[2019-03-05 15:14] VITALS: BP 120/79; TEMP 98.2
[2019-03-05] MEDS ORDERED: PRILOSEC 20MG20 MG PO (15:19)
[2019-03-05] MEDS ORDERED: BENADRYL25 M2 PO (15:32)
[2019-03-05] MEDS ORDERED: ATIVAN 1MG T1 MG/TAB PO (16:48)
[2019-03-05 16:55] VITALS: PULSE 100
== END 2019-03-05 16:55 | disposition home or self-care (01) ==
LOC: COL.ER 15:09
DX: G25.71 Drug induced akathisia (principal); F41.9 Anxiety disorder, unspecified; Z90.89 Acquired absence of other organs; Z87.891 Personal history of nicotine dependence; Z88.8 Allergy status to other drugs, medicaments and biological substances; Z86.718 Personal history of other venous thrombosis and embolism; Z98.890 Other specified postprocedural states
CPT/HCPCS: J1200; J2060

== ENCOUNTER 2019-03-07 17:25 | Emergency (ER) | payer MEDICAID ==
[~2019-03-07] VITALS: Ht 165.1 cm; Wt 113.6 kg
[~2019-03-07 17:25] MED LIST changes: +ATIVAN 1MG T1 MG/TAB PO; +BENADRYL25 M2 PO
[2019-03-07 17:41] VITALS: BP 117/76; TEMP 99
[2019-03-07 19:29] VITALS: PULSE 103
== END 2019-03-07 19:25 | disposition home or self-care (01) ==
LOC: COL.ER 17:25
DX: G43.909 Migraine, unspecified, not intractable, without status migrainosus (principal); F41.9 Anxiety disorder, unspecified; F32.9 Major depressive disorder, single episode, unspecified; E03.9 Hypothyroidism, unspecified; Z90.89 Acquired absence of other organs; Z87.891 Personal history of nicotine dependence
CPT/HCPCS: J0595; J0780; J1200; J1885

== ENCOUNTER 2019-03-10 10:39 | Emergency (ER) | payer MEDICAID ==
[~2019-03-10] VITALS: Ht 165.1 cm; Wt 116.4 kg
[2019-03-10 10:54] VITALS: BP 131/61; TEMP 98
[2019-03-10] MEDS ORDERED: NEURONTIN300 MG/CAP PO (13:09)
[2019-03-10] MEDS ORDERED: NORCO 325 MG-51 TAB PO (15:06)
[2019-03-10] MEDS ORDERED: FLEXERIL 1010 MG/TAB PO (15:06)
[2019-03-10 15:40] VITALS: PULSE 105
== END 2019-03-10 15:40 | disposition home or self-care (01) ==
LOC: COL.ER 10:39
DX: S39.012A Strain of muscle, fascia and tendon of lower back, initial encounter (principal); G43.909 Migraine, unspecified, not intractable, without status migrainosus; F41.9 Anxiety disorder, unspecified; Z90.49 Acquired absence of other specified parts of digestive tract; Z87.891 Personal history of nicotine dependence; Z86.711 Personal history of pulmonary embolism; Z86.718 Personal history of other venous thrombosis and embolism; W10.9XXA Fall (on) (from) unspecified stairs and steps, initial encounter
CPT/HCPCS: J2270

== ENCOUNTER → 2019-03-13 | Outpatient (CLI) | payer MEDICAID ==
[~2019-03-13] MED LIST changes: +DESYREL 100MG100 MG PO
== END ==
LOC: COL.RAD 10:22
DX: R10.11 Right upper quadrant pain (principal)

== ENCOUNTER 2019-03-14 11:55 | Emergency (ER) | payer MEDICAID ==
[~2019-03-14] VITALS: Ht 165.1 cm; Wt 118.2 kg
[~2019-03-14 11:55] MED LIST changes: -DESYREL 100MG100 MG PO
[2019-03-14 11:59] VITALS: BP 119/77; TEMP 98.2
[2019-03-14 13:49] VITALS: PULSE 95
== END 2019-03-14 13:50 | disposition home or self-care (01) ==
LOC: COL.ER 11:55
DX: G43.909 Migraine, unspecified, not intractable, without status migrainosus (principal); F41.9 Anxiety disorder, unspecified; Z87.891 Personal history of nicotine dependence; Z86.711 Personal history of pulmonary embolism; Z86.718 Personal history of other venous thrombosis and embolism; Z88.5 Allergy status to narcotic agent
CPT/HCPCS: J1200; J1885; J3010

== ENCOUNTER 2019-03-18 12:30 | Emergency (ER) | payer MEDICAID ==
[~2019-03-18] VITALS: Ht 165.1 cm; Wt 118.2 kg
[2019-03-18 12:39] VITALS: BP 111/74; TEMP 97.5
[2019-03-18] MEDS ORDERED: DESYREL 100MG100 MG PO (13:49)
[2019-03-18 15:34] VITALS: PULSE 90
== END 2019-03-18 15:35 | disposition home or self-care (01) ==
LOC: COL.ER 12:30
DX: G43.909 Migraine, unspecified, not intractable, without status migrainosus (principal); K21.9 Gastro-esophageal reflux disease without esophagitis; E03.9 Hypothyroidism, unspecified; F17.210 Nicotine dependence, cigarettes, uncomplicated; Z90.89 Acquired absence of other organs; Z86.718 Personal history of other venous thrombosis and embolism; Z88.5 Allergy status to narcotic agent; Z86.711 Personal history of pulmonary embolism
CPT/HCPCS: J0780; J1200; J1885; J2270

== ENCOUNTER 2019-03-20 14:12 | Emergency (ER) | payer MEDICAID ==
[~2019-03-20] VITALS: Ht 165.1 cm; Wt 118.2 kg
[~2019-03-20 14:12] MED LIST changes: +DESYREL 100MG100 MG PO
[2019-03-20] MEDS ORDERED: TROKEND25 (14:24)
[2019-03-20] MEDS ORDERED: IMITREX ST6 MG/0.51 SC (14:25)
[2019-03-20 16:45] VITALS: BP 110/75; PULSE 102; TEMP 96.3
== END 2019-03-20 16:45 | disposition home or self-care (01) ==
LOC: COL.ER 14:12
DX: G43.909 Migraine, unspecified, not intractable, without status migrainosus (principal); E03.9 Hypothyroidism, unspecified; F32.9 Major depressive disorder, single episode, unspecified; F41.9 Anxiety disorder, unspecified; Z90.89 Acquired absence of other organs; Z87.891 Personal history of nicotine dependence
CPT/HCPCS: J0595; J0780; J1200

== ENCOUNTER 2019-03-22 13:54 | Emergency (ER) | payer MEDICAID ==
[~2019-03-22] VITALS: Ht 165.1 cm; Wt 118.2 kg
[~2019-03-22 13:54] MED LIST changes: +IMITREX ST6 MG/0.51 SC; +TROKEND25
[2019-03-22 13:58] VITALS: BP 115/81; PULSE 110; TEMP 97.9
[2019-03-22 15:15] LABS: BASO # 0.1 (0.0-0.2); BASO % 0.7 % (0.0-2.0); EOS # 0.1 (0.0-0.7); EOS % 1.2 % (0-4.0); GRAN # 4.6 (1.4-6.5); GRAN % 62.3 % (42.2-75.2); HEMATOCRIT 40.6 % (37.0-47.0); HEMOGLOBIN 13.9 g/dl (12.5-16.0); LYMPH # 2.1 (1.2-3.4); LYMPH % 27.7 % (20.0-51.0); MEAN CELL VOLUME 87 fl (80.0-100.0); MEAN CORPUSCULAR HEMOGLOBIN 30 pg (27.0-31.0); MEAN CORPUSCULAR HGB CONC 34 g/dl (33.0-37.0); MEAN PLATELET VOLUME 10.5 fl (7.4-10.4); MONO # 0.6 (0.1-0.6); MONO % 7.8 % (1.7-9.3); PLATELET COUNT 247 K/mm3 (130-400); RED BLOOD COUNT 4.66 M/mm3 (4.10-5.30); REDCELL DISTRIBUTION WIDTH-CV 12.9 % (11.5-14.5)
[2019-03-22 15:25] LABS: ALANINE AMINOTRANSFERASE 17 U/L (9-52); ALKALINE PHOSPHATASE 106 U/L (50-136); ANION GAP 12 mmol/L (7-16); AST,SGOT 38 U/L (15-37); BILIRUBIN,TOTAL 0.5 mg/dL (0.0-1.0); BLOOD UREA NITROGEN 11 mg/dL (7-17); CALCIUM 9.4 mg/dL (8.4-10.2); CARBON DIOXIDE 24 mmol/L (22-30); CHLORIDE 99 mmol/L (98-107); CREATININE, serum 0.89 (0.52-1.25); GLUCOSE 97 mg/dL (74-106); LIPASE 65 U/L (23-300); POTASSIUM 3.3 mmol/L (3.4-5.0); SODIUM 136 mmol/L (137-145)
[2019-03-22 15:39] LABS: TROPONIN-I < 0.012 ng/mL (0.000-0.035)
[2019-03-22] MEDS ORDERED: ZOFRAN ODT4 MG PO (16:58)
== END 2019-03-22 17:40 | disposition home or self-care (01) ==
LOC: COL.ER 13:54
PROVIDERS: Emergency Medicine
DX: R07.89 Other chest pain (principal); Z87.891 Personal history of nicotine dependence; Z86.711 Personal history of pulmonary embolism
CPT/HCPCS: J1885

== ENCOUNTER 2019-03-25 16:18 | Emergency (ER) | payer MEDICAID ==
[~2019-03-25] VITALS: Ht 165.1 cm; Wt 118.2 kg
[~2019-03-25 16:18] MED LIST changes: +ZOFRAN ODT4 MG PO
[2019-03-25 16:31] VITALS: BP 112/72; TEMP 97.3
[2019-03-25 19:53] VITALS: PULSE 96
== END 2019-03-25 19:53 | disposition home or self-care (01) ==
LOC: COL.ER 16:18
DX: G43.909 Migraine, unspecified, not intractable, without status migrainosus (principal)
CPT/HCPCS: J0595; J1200; J2550

== ENCOUNTER → 2019-03-27 | Outpatient (CLI) | payer MEDICAID ==
[~2019-03-27] MED LIST changes: +PHENERGAN 25 TA25 MG PO
== END ==
LOC: COL.RAD 10:17
DX: K82.8 Other specified diseases of gallbladder (principal)
CPT/HCPCS: A9537

== ENCOUNTER 2019-03-29 12:39 | Emergency (ER) | payer MEDICAID ==
[~2019-03-29] VITALS: Ht 165.1 cm; Wt 118.2 kg
[~2019-03-29 12:39] MED LIST changes: -PHENERGAN 25 TA25 MG PO
[2019-03-29 12:44] VITALS: TEMP 97.1
[2019-03-29 16:52] LABS: ALBUMIN 4.1 gm/dL (3.5-5.0); BILIRUBIN,TOTAL 0.6 mg/dL (0.0-1.0); CALCIUM 9.4 mg/dL (8.4-10.2); CREATININE, serum 0.96 (0.52-1.25); POTASSIUM 3.4 mmol/L (3.4-5.0); TOTAL PROTEIN 8.2 gm/dL (6.4-8.2)
[2019-03-29 17:26] LABS: BASO # 0.1 (0.0-0.2); EOS # 0.1 (0.0-0.7); GRAN # 4.1 (1.4-6.5); GRAN % 58.1 % (42.2-75.2); HEMATOCRIT 40.5 % (37.0-47.0); HEMOGLOBIN 13.7 g/dl (12.5-16.0); LYMPH # 2.3 (1.2-3.4); LYMPH % 33.2 % (20.0-51.0); MEAN CELL VOLUME 88 fl (80.0-100.0); MEAN CORPUSCULAR HEMOGLOBIN 30 pg (27.0-31.0); MEAN CORPUSCULAR HGB CONC 34 g/dl (33.0-37.0); MEAN PLATELET VOLUME 10.1 fl (7.4-10.4); MONO # 0.5 (0.1-0.6); MONO % 6.6 % (1.7-9.3); PLATELET COUNT 254 K/mm3 (130-400); RED BLOOD COUNT 4.63 M/mm3 (4.10-5.30)
[2019-03-29] MEDS ORDERED: NORCO 325 MG-51 TAB PO (17:43)
[2019-03-29] MEDS ORDERED: PHENERGAN 25 TA25 MG PO (17:43)
[2019-03-29 18:01] VITALS: BP 118/76; PULSE 100
== END 2019-03-29 18:03 | disposition home or self-care (01) ==
LOC: COL.ER 12:39
PROVIDERS: Emergency Medicine
DX: K80.50 Calculus of bile duct without cholangitis or cholecystitis without obstruction (principal); G43.909 Migraine, unspecified, not intractable, without status migrainosus; Z86.718 Personal history of other venous thrombosis and embolism; Z86.711 Personal history of pulmonary embolism; Z90.89 Acquired absence of other organs
CPT/HCPCS: J1170; J2060; J2550; J7030

== ENCOUNTER 2019-03-30 14:59 | Emergency (ER) | payer MEDICAID ==
[~2019-03-30] VITALS: Ht 165.1 cm; Wt 118.2 kg
[~2019-03-30 14:59] MED LIST changes: +PHENERGAN 25 TA25 MG PO
[2019-03-30 15:18] VITALS: BP 111/71
[2019-03-30 17:07] VITALS: PULSE 70; TEMP 98.4
== END 2019-03-30 17:07 | disposition home or self-care (01) ==
LOC: COL.ER 14:59
DX: R10.10 Upper abdominal pain, unspecified (principal); G89.29 Other chronic pain; R11.2 Nausea with vomiting, unspecified; Z87.891 Personal history of nicotine dependence
CPT/HCPCS: J1170; J1885; J2550

== ENCOUNTER 2019-04-04 12:53 | Emergency (ER) | payer MEDICAID ==
[~2019-04-04] VITALS: Ht 165.1 cm; Wt 119.2 kg
[2019-04-04 13:02] VITALS: TEMP 97.8
[2019-04-04 16:00] VITALS: BP 110/73; PULSE 100
== END 2019-04-04 16:40 | disposition home or self-care (01) ==
LOC: COL.ER 12:53
DX: R10.11 Right upper quadrant pain (principal); F41.9 Anxiety disorder, unspecified; G43.909 Migraine, unspecified, not intractable, without status migrainosus; Z87.891 Personal history of nicotine dependence; Z86.711 Personal history of pulmonary embolism
CPT/HCPCS: J1170; J2550

== ENCOUNTER 2019-04-09 10:07 | Day surgery (SDC) | payer MEDICAID ==
[~2019-04-09] VITALS: Ht 165.1 cm; Wt 115.2 kg
[2019-04-09 10:44] VITALS: BP 118/76; PULSE 95; TEMP 98.3
[2019-04-09] MEDS ORDERED: FLEXERIL 1010 MG/TAB PO (11:07)
[2019-04-09] MEDS ORDERED: MIGRAVENT PO (11:10)
--- NOTE | 2019-04-09 11:40 | NUR ---
Patient resting in room comfortably. Denies any needs at this time. Family denies any needs at this time.
[2019-04-09 15:03] VITALS: TEMP 99.9
[2019-04-09] MEDS ORDERED: MOTRIN 600600 MG/TAB PO (15:07)
[2019-04-09] MEDS ORDERED: PERCOCET 325 MG1 TA2 PO (15:07)
[2019-04-09] MEDS ORDERED: ELIQUIS 2.5 PO (15:12)
--- NOTE | 2019-04-09 15:30 | NUR ---
Patient arrives to [facility] via cart, accompanied by [employer] Yanni Perez. She is sitting up in bed, drowsy, oriented. Monitor applied for post-op vitals. VSS and WNL on room air. She denies pain or nausea. Offered and receives juice and crackers. Operative sites x5 are clean, dry, intact. Abdomen is soft and tender. Family brought to the bedside with patient's permission. Call light in reach. Will continue to monitor.
[2019-04-09 15:45] VITALS: BP 112/78; PULSE 106
--- NOTE | 2019-04-09 15:45 | NUR ---
Patient is lethargic, but sitting up and talking with family. VSS on RA. She denies any nausea. Complains of mild pain in abdomen. Discharge criteria explained to patient and family. Patient sipping OJ and eating crackers - tolerating PO well. Operative sites remain clean, dry, intact.
[2019-04-09 16:00] VITALS: BP 106/70; PULSE 104
--- NOTE | 2019-04-09 16:00 | NUR ---
Patient remains drowsy. VSS and WNL on room air.
[2019-04-09 16:15] VITALS: BP 108/70; PULSE 104
--- NOTE | 2019-04-09 16:15 | NUR ---
VSS and WNL on room air. Complains of pain 7/10 and "something in my eye". LUPE Eugene gave patient a PO percocet and saline flush for her eye.
[2019-04-09 16:30] VITALS: BP 109/70; PULSE 103
--- NOTE | 2019-04-09 16:30 | NUR ---
VSS on room air. Patient is more alert. She denies any nausea. Has mild pain. Requests to use the restroom. Escorted to restroom with 1:1 standby assist.
--- NOTE | 2019-04-09 17:04 | NUR ---
Patient voids large amount of clear, yellow urine and returns to room. Expresses desire to go home. Discharge criteria has been met. PIV removed with catheter intact and hemostasis achieved. Discharge instructions discussed, denies any questions, and verbalizes understanding. Patient changes to clothing independently.
--- NOTE | 2019-04-09 17:09 | NUR ---
Patient escorted to exit via wheelchair by LUPE Mosqueda. Discharged to home with ride in private vehicle at 1709.
== END 2019-04-09 17:09 | disposition home or self-care (01) ==
LOC: SDCO 10:07
DX: K81.1 Chronic cholecystitis (principal); F41.9 Anxiety disorder, unspecified; F32.9 Major depressive disorder, single episode, unspecified; E87.6 Hypokalemia; K21.9 Gastro-esophageal reflux disease without esophagitis; K82.8 Other specified diseases of gallbladder; M19.90 Unspecified osteoarthritis, unspecified site; G89.29 Other chronic pain; M54.5 Low back pain; E03.9 Hypothyroidism, unspecified; E66.01 Morbid (severe) obesity due to excess calories; Z68.41 Body mass index [BMI] 40.0-44.9, adult; Z91.030 Bee allergy status; Z80.0 Family history of malignant neoplasm of digestive organs; Z83.3 Family history of diabetes mellitus; Z80.51 Family history of malignant neoplasm of kidney; Z86.711 Personal history of pulmonary embolism; Z91.018 Allergy to other foods; Z88.8 Allergy status to other drugs, medicaments and biological substances; Z87.891 Personal history of nicotine dependence
CPT/HCPCS: J0690; J1100; J1170; J1650; J2250; J2405; J2704; J3010; J7120

== ENCOUNTER 2019-07-13 15:01 | Emergency (ER) | payer MEDICAID ==
[~2019-07-13] VITALS: Ht 165.1 cm; Wt 113.6 kg
[~2019-07-13 15:01] MED LIST changes: +ELIQUIS 2.5 PO; +MIGRAVENT PO; +MOTRIN 600600 MG/TAB PO; +PERCOCET 325 MG1 TA2 PO
[2019-07-13 15:20] VITALS: TEMP 97.4
[2019-07-13 16:00] LABS: COLLECTION METHOD CLEAN CATCH
[2019-07-13 16:06] LABS: MUCOUS Present /lpf; PH 5 (5-8); SQUAMOUS EPITHELIAL 0-2 /hpf; URINE APPEARANCE Clear; URINE BACTERIA Rare /hpf; URINE BILIRUBIN Negative (NEGATIVE); URINE BLOOD Negative (NEGATIVE); URINE COLOR Yellow; URINE GLUCOSE Negative (NEGATIVE); URINE KETONE Negative (NEGATIVE); URINE LEUKOCYTE ESTERASE Negative (NEGATIVE); URINE NITRATE Negative (NEGATIVE); URINE PROTEIN(semi-quant) Negative (NEGATIVE); URINE RBC 0-2 /hpf; URINE UROBILINOGEN Negative (NEGATIVE)
[2019-07-13 16:17] LABS: BASO # 0.1 (0.0-0.2); BASO % 0.7 % (0.0-2.0); EOS # 0.1 (0.0-0.7); EOS % 1.5 % (0-4.0); GRAN # 4.5 (1.4-6.5); GRAN % 60.4 % (42.2-75.2); HEMATOCRIT 37.4 % (37.0-47.0); HEMOGLOBIN 12.9 g/dl (12.5-16.0); LYMPH # 2.3 (1.2-3.4); LYMPH % 30.9 % (20.0-51.0); MEAN CELL VOLUME 85 fl (80.0-100.0); MEAN CORPUSCULAR HEMOGLOBIN 29 pg (27.0-31.0); MEAN CORPUSCULAR HGB CONC 35 g/dl (33.0-37.0); MEAN PLATELET VOLUME 10.1 fl (7.4-10.4); MONO # 0.5 (0.1-0.6); MONO % 6.2 % (1.7-9.3); PLATELET COUNT 271 K/mm3 (130-400); RED BLOOD COUNT 4.42 M/mm3 (4.10-5.30); REDCELL DISTRIBUTION WIDTH-CV 12.7 % (11.5-14.5)
[2019-07-13 16:29] LABS: ALBUMIN 4.1 gm/dL (3.5-5.0); BILIRUBIN,TOTAL 0.3 mg/dL (0.0-1.0); C-REACTIVE PROTEIN 1.5 mg/dL (0.0-0.9); CALCIUM 8.7 mg/dL (8.4-10.2); TOTAL PROTEIN 7.6 gm/dL (6.4-8.2)
[2019-07-13 16:33] LABS: POTASSIUM 2.7 mmol/L (3.4-5.0)
[2019-07-13] MEDS ORDERED: K-DUR20 MEQ (16:51)
[2019-07-13] MEDS ORDERED: ELIQUIS 5MG PO (16:59)
[2019-07-13 17:46] VITALS: BP 105/75; PULSE 96
== END 2019-07-13 17:46 | disposition home or self-care (01) ==
LOC: COL.ER 15:01
PROVIDERS: Emergency Medicine
DX: I80.9 Phlebitis and thrombophlebitis of unspecified site (principal); E87.6 Hypokalemia; F32.9 Major depressive disorder, single episode, unspecified; Z90.710 Acquired absence of both cervix and uterus; Z79.01 Long term (current) use of anticoagulants; Z90.89 Acquired absence of other organs; Z87.891 Personal history of nicotine dependence
CPT/HCPCS: J2405; J3010; J3480

== ENCOUNTER 2020-04-14 16:14 | Emergency (ER) | payer MEDICAID ==
[~2020-04-14] VITALS: Ht 167.6 cm; Wt 118.2 kg
[~2020-04-14 16:14] MED LIST changes: +K-DUR20 MEQ; +ZEMBRACE S3 MG/0.5 M SQ
[2020-04-14 16:20] VITALS: TEMP 98.7
[2020-04-14 16:46] LABS: BASO # 0.1 (0.0-0.2); BASO % 0.6 % (0.0-2.0); EOS # 0.2 (0.0-0.7); GRAN # 5.2 (1.4-6.5); GRAN % 54.9 % (42.2-75.2); HEMATOCRIT 37.4 % (37.0-47.0); HEMOGLOBIN 12.5 g/dl (12.5-16.0); LYMPH # 3.3 (1.2-3.4); LYMPH % 34.5 % (20.0-51.0); MEAN CELL VOLUME 91 fl (80.0-100.0); MEAN CORPUSCULAR HEMOGLOBIN 30 pg (27.0-31.0); MEAN CORPUSCULAR HGB CONC 33 g/dl (33.0-37.0); MEAN PLATELET VOLUME 10.1 fl (7.4-10.4); MONO # 0.7 (0.1-0.6); MONO % 7.7 % (1.7-9.3); PLATELET COUNT 294 K/mm3 (130-400); RED BLOOD COUNT 4.11 M/mm3 (4.10-5.30); REDCELL DISTRIBUTION WIDTH-CV 12.6 % (11.5-14.5)
[2020-04-14] MEDS ORDERED: ELAVIL100 MG PO (16:50)
[2020-04-14] MEDS ORDERED: NAPROSYN500 MG PO (16:51)
[2020-04-14] MEDS ORDERED: TROKEND100 (16:52)
[2020-04-14] MEDS ORDERED: PHENERGAN 25 TA25 MG PO (16:53)
[2020-04-14] MEDS ORDERED: ASPIRIN 81M81 MG/TA2 PO (16:54)
[2020-04-14] MEDS ORDERED: ULTRAM 50MG TAB50 MG PO (16:55)
[2020-04-14 16:56] LABS: PROTHROMBIN TIME 11.4 SECONDS (9.7-12.8)
[2020-04-14 17:01] LABS: ALANINE AMINOTRANSFERASE 12 U/L (4-34); ALKALINE PHOSPHATASE 87 U/L (50-136); ANION GAP 7 mmol/L (7-16); AST,SGOT 25 U/L (15-37); BILIRUBIN,TOTAL 0.3 mg/dL (0.0-1.0); BLOOD UREA NITROGEN 19 mg/dL (7-17); CALCIUM 9.1 mg/dL (8.4-10.2); CARBON DIOXIDE 21 mmol/L (22-30); CHLORIDE 108 mmol/L (98-107); CREATINE KINASE 37 U/L (30-135); CREATININE, serum 1.06 (0.52-1.25); GLUCOSE 90 mg/dL (74-106); LIPASE 57 U/L (23-300); SODIUM 136 mmol/L (137-145); TOTAL PROTEIN 7.6 gm/dL (6.4-8.2)
[2020-04-14 17:18] LABS: PROLACTIN 18.1 ng/mL (3.0-18.6)
[2020-04-14 17:23] LABS: TROPONIN-I < 0.012 ng/mL (0.000-0.035)
[2020-04-14] MEDS ORDERED: ANTIVERT 25MG25 MG PO (18:32)
[2020-04-14 18:55] VITALS: BP 112/80; PULSE 95
== END 2020-04-14 19:00 | disposition home or self-care (01) ==
LOC: COL.ER 16:14
PROVIDERS: Emergency Medicine
DX: S00.93XA Contusion of unspecified part of head, initial encounter (principal); S10.93XA Contusion of unspecified part of neck, initial encounter; R55 Syncope and collapse; R42 Dizziness and giddiness; G43.909 Migraine, unspecified, not intractable, without status migrainosus; Z90.49 Acquired absence of other specified parts of digestive tract; Z90.710 Acquired absence of both cervix and uterus; Z86.718 Personal history of other venous thrombosis and embolism; Z79.890 Hormone replacement therapy; Z79.82 Long term (current) use of aspirin; W19.XXXA Unspecified fall, initial encounter; W22.8XXA Striking against or struck by other objects, initial encounter; Y92.002 Bathroom of unspecified non-institutional (private) residence as the place of occurrence of the external cause
CPT/HCPCS: J2060; J2550; J7030; Q9967

== ENCOUNTER 2020-04-22 19:13 | Emergency (ER) | payer MEDICAID ==
[~2020-04-22] VITALS: Ht 165.1 cm; Wt 100.0 kg
[~2020-04-22 19:13] MED LIST changes: +ASPIRIN 81M81 MG/TA2 PO; +ELAVIL100 MG PO; +NAPROSYN500 MG PO; +TROKEND100; +ULTRAM 50MG TAB50 MG PO
[2020-04-22 19:29] VITALS: BP 103/70; TEMP 98.3
[2020-04-22 20:30] VITALS: PULSE 100
== END 2020-04-22 20:32 | disposition home or self-care (01) ==
LOC: COL.ER 19:13
DX: S80.02XA Contusion of left knee, initial encounter (principal); R55 Syncope and collapse; G43.909 Migraine, unspecified, not intractable, without status migrainosus; Z90.49 Acquired absence of other specified parts of digestive tract; Z90.710 Acquired absence of both cervix and uterus; Z87.891 Personal history of nicotine dependence; Z90.89 Acquired absence of other organs; Z86.718 Personal history of other venous thrombosis and embolism; Z79.82 Long term (current) use of aspirin; Z79.890 Hormone replacement therapy; W19.XXXA Unspecified fall, initial encounter; Y92.009 Unspecified place in unspecified non-institutional (private) residence as the place of occurrence of the external cause

== ENCOUNTER → 2020-10-24 | Outpatient (CLI) | payer MEDICAID | LOC: COL.RAD 11:24 | DX: K76.0 Fatty (change of) liver, not elsewhere classified (principal); K59.00 Constipation, unspecified; Z90.49 Acquired absence of other specified parts of digestive tract; Z90.710 Acquired absence of both cervix and uterus | CPT/HCPCS: Q9967 ==

== ENCOUNTER 2021-02-21 11:49 | Emergency (ER) | payer MEDICAID ==
[~2021-02-21] VITALS: Ht 170.2 cm; Wt 113.6 kg
[2021-02-21 11:57] VITALS: TEMP 97.9
[2021-02-21 13:31] LABS: BASO # 0.1 (0.0-0.2); EOS # 0.2 (0.0-0.7); EOS % 2.8 % (0-4.0); GRAN # 3.1 (1.4-6.5); GRAN % 50.7 % (42.2-75.2); HEMATOCRIT 40.6 % (37.0-47.0); HEMOGLOBIN 12.9 g/dl (12.5-16.0); LYMPH # 2.2 (1.2-3.4); LYMPH % 36.9 % (20.0-51.0); MEAN CELL VOLUME 85 fl (80.0-100.0); MEAN CORPUSCULAR HEMOGLOBIN 27 pg (27.0-31.0); MEAN CORPUSCULAR HGB CONC 32 g/dl (33.0-37.0); MEAN PLATELET VOLUME 9.9 fl (7.4-10.4); MONO # 0.5 (0.1-0.6); MONO % 8.3 % (1.7-9.3); PLATELET COUNT 266 K/mm3 (130-400); RED BLOOD COUNT 4.76 M/mm3 (4.10-5.30); REDCELL DISTRIBUTION WIDTH-CV 14.1 % (11.5-14.5)
[2021-02-21 13:46] LABS: ALANINE AMINOTRANSFERASE 20 U/L (4-34); ALBUMIN 3.8 gm/dL (3.5-5.0); ALKALINE PHOSPHATASE 86 U/L (50-136); ANION GAP 6 mmol/L (7-16); AST,SGOT 29 U/L (15-37); BILIRUBIN,TOTAL 0.1 mg/dL (0.0-1.0); BLOOD UREA NITROGEN 11 mg/dL (7-17); CALCIUM 8.5 mg/dL (8.4-10.2); CARBON DIOXIDE 20 mmol/L (22-30); CHLORIDE 111 mmol/L (98-107); CREATININE, serum 0.81 (0.52-1.25); GLUCOSE 101 mg/dL (74-106); POTASSIUM 3.9 mmol/L (3.4-5.0); SODIUM 138 mmol/L (137-145); TOTAL PROTEIN 7.3 gm/dL (6.4-8.2)
[2021-02-21 13:53] LABS: C-REACTIVE PROTEIN < 0.5 mg/dL (0.0-0.9)
[2021-02-21] MEDS ORDERED: PROVENTIL0.09 MG/A1 IH (16:39)
[2021-02-21 16:57] VITALS: BP 107/75; PULSE 90
== END 2021-02-21 16:57 | disposition home or self-care (01) ==
LOC: COL.ER 11:49
PROVIDERS: Emergency Medicine
DX: R07.89 Other chest pain (principal); R06.02 Shortness of breath; F41.9 Anxiety disorder, unspecified; Z86.711 Personal history of pulmonary embolism; Z86.718 Personal history of other venous thrombosis and embolism; Z79.899 Other long term (current) drug therapy; Z79.82 Long term (current) use of aspirin
CPT/HCPCS: J2060; J7030; Q9967

== ENCOUNTER → 2021-11-09 | Outpatient (CLI) | payer MEDICAID ==
[~2021-11-09] MED LIST changes: +PROVENTIL0.09 MG/A1 IH
[2021-11-09 12:46] LABS: BLOOD UREA NITROGEN 16 mg/dL (7-19); C-REACTIVE PROTEIN 0.28 mg/dL (0.00-0.50); CARBON DIOXIDE 21 mmol/L (22-29); CHLORIDE 107 mmol/L (98-107); CREATININE, serum 0.87 mg/dL (0.57-1.11); GLUCOSE 84 mg/dL (70-99); LIPASE 18 U/L (8-78); SODIUM 136 mmol/L (136-145); TROPONIN-I < 0.010 ng/mL (0.00-0.033)
[2021-11-09 12:51] LABS: ERYTHROCYTE SEDIMENTATION RATE 8 mm/hr (0-20)
[2021-11-09 12:54] LABS: BASO # 0.1 K/mm3 (0.0-0.2); BASO % 1.2 % (0.0-2.0); EOS # 0.3 K/mm3 (0.0-0.7); GRAN # 4.4 K/mm3 (1.4-6.5); GRAN % 53.8 % (42.2-75.2); HEMATOCRIT 41.4 % (37.0-47.0); HEMOGLOBIN 13.5 g/dl (12.5-16.0); LYMPH # 2.7 K/mm3 (1.2-3.4); LYMPH % 32.9 % (20.0-51.0); MEAN CELL VOLUME 86 fl (80.0-100.0); MEAN CORPUSCULAR HEMOGLOBIN 28 pg (27-31); MEAN CORPUSCULAR HGB CONC 33 g/dl (33.0-37.0); MEAN PLATELET VOLUME 10.1 fl (7.4-10.4); MONO # 0.7 K/mm3 (0.1-0.6); MONO % 8.7 % (1.7-9.3); PLATELET COUNT 334 K/mm3 (130-400); RED BLOOD COUNT 4.81 M/mm3 (4.10-5.30); REDCELL DISTRIBUTION WIDTH-CV 13.7 % (11.5-14.5)
[2021-11-09 13:05] LABS: ANION GAP 8 mmol/L (7-16)
== END ==
LOC: ZCOL.LAB 12:30
PROVIDERS: Nurse Practitioner
DX: R07.89 Other chest pain (principal); Z86.711 Personal history of pulmonary embolism